=== PATIENT | female | born 1965 | race Caucasian/White ===

== ENCOUNTER 2020-11-02 04:21 | Inpatient (IN) | payer OTHER ==
[2020-11-02] MEDS ORDERED: MIDAZOLAM HCL 2 MG/2 ML SINGLE DOSE VIAL ONE ×2 (10:34)
[2020-11-02] MEDS ORDERED: fentaNYL CITRATE 250 MCG/5 ML VIAL ONE (11:16)
[2020-11-02] MEDS ORDERED: PROPOFOL 20 ML ONE (11:17)
[2020-11-02] MEDS ORDERED: GLYCOPYRROLATE 0.2 MG/1 ML VIAL ONE ×3 (11:27→15:22)
[2020-11-02] MEDS ORDERED: BUPIVACAINE HCL/PF 0.25% (2.5MG/ML) 10 ML VIAL ONE (11:28)
[2020-11-02] MEDS ORDERED: SUCCINYLCHOLINE CHLORIDE 200 MG/10 ML SYRINGE ONE (11:28)
[2020-11-02] MEDS ORDERED: ceFAZolin SODIUM 1 GM VIAL ONE (11:36)
[2020-11-02] MEDS ORDERED: ceFAZolin SODIUM 1 GM VIAL IVPB ONE (11:40)
[2020-11-02] MEDS ORDERED: DEXAMETHASONE SOD PHOSPHATE 4 MG/1 ML VIAL ONE (12:03)
[2020-11-02] MEDS ORDERED: NEOSTIGMINE METHYLSULFATE 0.5 MG/ML - 10 ML MDV ONE (14:23)
[2020-11-02] MEDS ORDERED: HYDROmorphone HCl 2 MG/ML VIAL IVPB PRN (14:28)
[2020-11-02] MEDS ORDERED: ONDANSETRON 4 MG/2 ML VIAL IVPUSH PRN (14:57)
[2020-11-02 15:50] LABS: HEMOGLOBIN 12.2 GM/dL (10.7-15.3); MCH 30.1 pg (25.7-33.7); MCHC 32.9 g/dl (32.0-36.0); MEAN CELL VOLUME 91.4 fl (80-96); MEAN PLT VOLUME 8.8 fl (7.5-11.1); PLATELET COUNT 206 10^3/uL (134-434); RBC 4.04 M/mm3 (3.60-5.2); RDW 13.8 % (11.6-15.6); WHITE BLOOD COUNT 5.9 K/mm3 (4.0-10.0)
[2020-11-02 16:12] LABS: CALCIUM 8.4 mg/dL (8.5-10.1)
[2020-11-02 16:13] LABS: ALBUMIN 3.4 g/dl (3.4-5.0); BLOOD UREA NITROGEN 11.5 mg/dL (7-18)
[2020-11-02 16:16] LABS: CREATININE 0.7 mg/dL (0.55-1.3)
[2020-11-02 16:18] LABS: BILIRUBIN,TOTAL 0.4 mg/dL (0.2-1); TOT PROT 6.4 g/dl (6.4-8.2)
[2020-11-02] MEDS: LACTATED RINGERS SOLUTION 1,000 ML IV SCH (18:23)
[2020-11-02] MEDS: SODIUM CHLORIDE 1,000 ML IV SCH (20:13)
[2020-11-02] MEDS: FAMOTIDINE 20 MG/50 ML IVPB 20 MG/50 ML MG IVPB SCH (21:17)
[2020-11-02] MEDS: HYDROmorphone HCl 2 MG/ML VIAL IVPB PRN (21:42)
[2020-11-03 08:47] LABS: HEMATOCRIT 34.4 % (32.4-45.2); HEMOGLOBIN 11.4 GM/dL (10.7-15.3); MCH 30.3 pg (25.7-33.7); MCHC 33.1 g/dl (32.0-36.0); MEAN CELL VOLUME 91.4 fl (80-96); PLATELET COUNT 203 10^3/uL (134-434); RBC 3.77 M/mm3 (3.60-5.2); RDW 13.8 % (11.6-15.6); WHITE BLOOD COUNT 5.9 K/mm3 (4.0-10.0)
[2020-11-03] MEDS: FAMOTIDINE 20 MG/50 ML IVPB 20 MG/50 ML MG IVPB SCH ×2 (09:09→21:23)
[2020-11-03 09:31] LABS: CALCIUM 8.3 mg/dL (8.5-10.1)
[2020-11-03 09:32] LABS: BLOOD UREA NITROGEN 9.2 mg/dL (7-18)
[2020-11-03 09:35] LABS: CREATININE 0.7 mg/dL (0.55-1.3)
[2020-11-03 09:36] LABS: BILIRUBIN,TOTAL 0.8 mg/dL (0.2-1)
[2020-11-03 09:37] LABS: TOT PROT 5.7 g/dl (6.4-8.2)
[2020-11-03] MEDS: HYDROmorphone HCl 2 MG/ML VIAL IVPB PRN (18:22)
[2020-11-03] MEDS: LACTATED RINGERS SOLUTION 1,000 ML IV SCH (18:29)
[2020-11-04] MEDS: LACTATED RINGERS SOLUTION 1,000 ML IV SCH ×2 (07:14→15:38)
[2020-11-04] MEDS: FAMOTIDINE 20 MG/50 ML IVPB 20 MG/50 ML MG IVPB SCH ×2 (09:33→21:39)
[2020-11-04] MEDS: SODIUM CHLORIDE 1,000 ML IV SCH (15:39)
[2020-11-04 17:26] LABS: HEMATOCRIT 33.2 % (32.4-45.2); HEMOGLOBIN 11.3 GM/dL (10.7-15.3); MCH 30.6 pg (25.7-33.7); MCHC 34.1 g/dl (32.0-36.0); MEAN CELL VOLUME 89.8 fl (80-96); MEAN PLT VOLUME 8.7 fl (7.5-11.1); PLATELET COUNT 190 10^3/uL (134-434); RDW 13.9 % (11.6-15.6); WHITE BLOOD COUNT 4.4 K/mm3 (4.0-10.0)
[2020-11-04 17:50] LABS: CALCIUM 8.6 mg/dL (8.5-10.1)
[2020-11-04 17:52] LABS: ALBUMIN 3.4 g/dl (3.4-5.0); BLOOD UREA NITROGEN 7.9 mg/dL (7-18)
[2020-11-04 17:55] LABS: CREATININE 0.6 mg/dL (0.55-1.3)
[2020-11-04 17:56] LABS: BILIRUBIN,TOTAL 0.4 mg/dL (0.2-1); TOT PROT 6.3 g/dl (6.4-8.2)
[2020-11-05] MEDS ORDERED: DEXMEDETOMIDINE HCL 200 MCG/2 ML IVPB ONE (07:08)
[2020-11-05] MEDS ORDERED: ACETAMINOPHEN INJECTION 200 ML IVPB ONE (07:09)
[2020-11-05] MEDS ORDERED: PROPOFOL 20 ML ONE ×3 (07:21)
[2020-11-05] MEDS ORDERED: SUCCINYLCHOLINE CHLORIDE 200 MG/10 ML SYRINGE ONE (07:22)
[2020-11-05] MEDS ORDERED: EPHEDRINE SULFATE/0.9% NACL/PF 50 MG/10 ML SYRINGE NR ONE ×2 (07:22→13:11)
[2020-11-05] MEDS ORDERED: NEOSTIGMINE METHYLSULFATE 0.5 MG/ML - 10 ML MDV ONE (07:23)
[2020-11-05] MEDS ORDERED: ROCURONIUM BROMIDE 50 MG/5 ML SYRINGE ONE ×2 (07:23→10:36)
[2020-11-05] MEDS ORDERED: fentaNYL CITRATE 250 MCG/5 ML VIAL ONE (07:25)
[2020-11-05] MEDS ORDERED: MIDAZOLAM HCL 2 MG/2 ML SINGLE DOSE VIAL ONE (07:25)
[2020-11-05] MEDS ORDERED: KETAMINE HCL 200 MG/20 ML VIAL ONE (07:25)
[2020-11-05] MEDS ORDERED: BUPIVACAINE HCL/PF 0.25% (2.5MG/ML) 10 ML VIAL ONE ×2 (07:30→14:06)
[2020-11-05] MEDS ORDERED: ceFAZolin SODIUM 1 GM VIAL IVPB ONE (08:30)
[2020-11-05] MEDS ORDERED: GLYCOPYRROLATE 0.2 MG/1 ML VIAL ONE (09:02)
[2020-11-05] MEDS ORDERED: LIDOCAINE HCL/PF 2% SDV 5ML VIAL ONE ×2 (09:07→09:35)
[2020-11-05] MEDS: FAMOTIDINE 20 MG/50 ML IVPB 20 MG/50 ML MG IVPB SCH ×2 (09:38→21:47)
[2020-11-05] MEDS ORDERED: ceFAZolin SODIUM 1 GM VIAL ONE (12:19)
[2020-11-05] MEDS ORDERED: ALBUMIN HUMAN 25% 12.5 GM/50 ML VIAL IVPB SCH (14:15)
[2020-11-05] MEDS ORDERED: HYDROmorphone *PCA* 10MG/50ML DISP.SYRIN PCA SCH (16:30)
[2020-11-05] MEDS: LACTATED RINGERS SOLUTION 1,000 ML IV SCH (16:30)
[2020-11-05] MEDS ORDERED: PCA PUMP NR ONE ×2 (16:44→18:35)
[2020-11-05] MEDS: SODIUM CHLORIDE 1,000 ML IV SCH (17:07)
[2020-11-05] MEDS ORDERED: ACETAMINOPHEN 1000 MG/100 ML VIAL (NON FORMULARY) IVPB PRN (17:45)
[2020-11-05] MEDS: LACTATED RINGERS SOLUTION 1,000 ML/1,000 ML INFUS.BAG IV SCH (19:04)
[2020-11-05 20:46] LABS: HEMATOCRIT 33.7 % (32.4-45.2); HEMOGLOBIN 11.4 GM/dL (10.7-15.3); MCH 30.7 pg (25.7-33.7); MCHC 33.9 g/dl (32.0-36.0); MEAN CELL VOLUME 90.6 fl (80-96); MEAN PLT VOLUME 8.5 fl (7.5-11.1); PLATELET COUNT 176 10^3/uL (134-434); RBC 3.72 M/mm3 (3.60-5.2); RDW 13.4 % (11.6-15.6); WHITE BLOOD COUNT 6.6 K/mm3 (4.0-10.0)
[2020-11-05 21:08] LABS: ALBUMIN 3.1 g/dl (3.4-5.0); BLOOD UREA NITROGEN 7.6 mg/dL (7-18); CALCIUM 8.3 mg/dL (8.5-10.1)
[2020-11-05 21:12] LABS: BILIRUBIN,TOTAL 0.4 mg/dL (0.2-1); CREATININE 0.7 mg/dL (0.55-1.3); TOT PROT 5.3 g/dl (6.4-8.2)
[2020-11-05] MEDS: ACETAMINOPHEN 1000 MG/100 ML VIAL (NON FORMULARY) IVPB PRN (21:52)
[2020-11-05] MEDS ORDERED: FAMOTIDINE 20 MG/50 ML IVPB 50 ML IVPB SCH (22:00)
[2020-11-05] MEDS ORDERED: LACTATED RINGERS SOLUTION 1000 ML INFUS.BAG IV ONE (23:07)
[2020-11-06] MEDS ORDERED: PCA PUMP NR ONE ×6 (03:58→20:43)
[2020-11-06] MEDS: SODIUM CHLORIDE 1,000 ML IV SCH ×2 (04:00→18:43)
[2020-11-06] MEDS: ACETAMINOPHEN 1000 MG/100 ML VIAL (NON FORMULARY) IVPB PRN ×3 (05:42→18:01)
[2020-11-06 07:10] LABS: HEMATOCRIT 35.9 % (32.4-45.2); HEMOGLOBIN 11.9 GM/dL (10.7-15.3); MCH 30.4 pg (25.7-33.7); MCHC 33.3 g/dl (32.0-36.0); MEAN CELL VOLUME 91.2 fl (80-96); MEAN PLT VOLUME 8.6 fl (7.5-11.1); PLATELET COUNT 207 10^3/uL (134-434); RBC 3.93 M/mm3 (3.60-5.2); RDW 13.6 % (11.6-15.6); WHITE BLOOD COUNT 7.3 K/mm3 (4.0-10.0)
[2020-11-06 07:25] LABS: ALBUMIN 3.1 g/dl (3.4-5.0); BLOOD UREA NITROGEN 8.5 mg/dL (7-18); CALCIUM 8.2 mg/dL (8.5-10.1)
[2020-11-06 07:28] LABS: CREATININE 0.7 mg/dL (0.55-1.3)
[2020-11-06 07:31] LABS: BILIRUBIN,TOTAL 0.4 mg/dL (0.2-1); TOT PROT 5.7 g/dl (6.4-8.2)
[2020-11-06] MEDS: FAMOTIDINE 20 MG/50 ML IVPB 20 MG/50 ML MG IVPB SCH ×2 (09:15→22:42)
[2020-11-06] MEDS: ONDANSETRON 4 MG/2 ML VIAL IVPUSH PRN ×2 (10:25→17:28)
[2020-11-06] MEDS: LACTATED RINGERS SOLUTION 1,000 ML/1,000 ML INFUS.BAG IV SCH (18:41)
[2020-11-06] MEDS: HYDROmorphone *PCA* 10MG/50ML DISP.SYRIN PCA SCH (21:51)
[2020-11-06] MEDS: CHLORHEXIDINE GLUCONATE 4% CLEANSER FOR DECOLONIZATION TP SCH (22:42)
[2020-11-07] MEDS ORDERED: PCA PUMP NR ONE ×2 (06:58→07:54)
[2020-11-07 07:12] LABS: HEMATOCRIT 32.9 % (32.4-45.2); HEMOGLOBIN 10.9 GM/dL (10.7-15.3); MCH 30.5 pg (25.7-33.7); MCHC 33.1 g/dl (32.0-36.0); MEAN CELL VOLUME 92.1 fl (80-96); MEAN PLT VOLUME 9.1 fl (7.5-11.1); PLATELET COUNT 203 10^3/uL (134-434); RBC 3.57 M/mm3 (3.60-5.2); RDW 13.4 % (11.6-15.6); WHITE BLOOD COUNT 5.9 K/mm3 (4.0-10.0)
[2020-11-07 07:22] LABS: ALBUMIN 2.8 g/dl (3.4-5.0); BLOOD UREA NITROGEN 7.7 mg/dL (7-18); CALCIUM 8.3 mg/dL (8.5-10.1)
[2020-11-07 07:25] LABS: CREATININE 0.4 mg/dL (0.55-1.3)
[2020-11-07 07:27] LABS: BILIRUBIN,TOTAL 0.5 mg/dL (0.2-1); TOT PROT 5.5 g/dl (6.4-8.2)
[2020-11-07] MEDS ORDERED: DEXTROSE 50%-WATER - 25 GM/50 ML VIAL IVPUSH ONE (08:12)
[2020-11-07] MEDS ORDERED: DEXTROSE 50%-WATER 25 GM/50 ML DISP.SYRIN ONE (08:15)
[2020-11-07] MEDS: HYDROmorphone *PCA* 10MG/50ML DISP.SYRIN PCA SCH (08:35)
[2020-11-07] MEDS: LACTATED RINGERS SOLUTION 1,000 ML/1,000 ML INFUS.BAG IV SCH (10:53)
[2020-11-07] MEDS: FAMOTIDINE 20 MG/50 ML IVPB 20 MG/50 ML MG IVPB SCH ×2 (10:53→21:52)
[2020-11-07] MEDS: DEXTROSE 5%-0.45% SALINE 1,000 ML IV SCH (12:19)
[2020-11-07] MEDS: ACETAMINOPHEN 1000 MG/100 ML VIAL (NON FORMULARY) IVPB SCH ×2 (12:25→19:33)
[2020-11-07 15:23] VITALS: BMI 26.8
[2020-11-07] MEDS: ENOXAPARIN NA (PORCINE) 30 MG/0.3 ML DISP.SYRIN SQ SCH ×2 (17:26→17:30)
[2020-11-07] MEDS: ZOLPIDEM TARTRATE 5 MG TABLET PO PRN (21:52)
[2020-11-07] MEDS: CHLORHEXIDINE GLUCONATE 4% CLEANSER FOR DECOLONIZATION TP SCH (22:00)
[2020-11-08] MEDS: ACETAMINOPHEN 1000 MG/100 ML VIAL (NON FORMULARY) IVPB SCH (03:09)
[2020-11-08 06:36] LABS: BASO % 0.2 % (0-2.0); EOS % 7.4 % (0-4.5); HEMATOCRIT 31.1 % (32.4-45.2); HEMOGLOBIN 10.4 GM/dL (10.7-15.3); MCH 30.4 pg (25.7-33.7); MCHC 33.5 g/dl (32.0-36.0); MEAN CELL VOLUME 90.7 fl (80-96); MEAN PLT VOLUME 8.6 fl (7.5-11.1); NEUT % 67.4 % (42.8-82.8); PLATELET COUNT 203 10^3/uL (134-434); RBC 3.43 M/mm3 (3.60-5.2); RDW 13.5 % (11.6-15.6); WHITE BLOOD COUNT 3.9 K/mm3 (4.0-10.0)
[2020-11-08 06:59] LABS: CALCIUM 7.8 mg/dL (8.5-10.1)
[2020-11-08 07:00] LABS: ALBUMIN 2.5 g/dl (3.4-5.0); BLOOD UREA NITROGEN 4.9 mg/dL (7-18); MAGNESIUM 1.6 mg/dL (1.8-2.4)
[2020-11-08 07:03] LABS: CREATININE 0.3 mg/dL (0.55-1.3); PHOSPHOROUS 1.8 mg/dL (2.5-4.9)
[2020-11-08 07:07] LABS: BILIRUBIN,TOTAL 0.3 mg/dL (0.2-1); TOT PROT 4.8 g/dl (6.4-8.2)
[2020-11-08] MEDS ORDERED: MAGNESIUM SULF 50% (8.12 MEQ/2 ML-1 GM VIAL) IVPB ONE (08:36)
[2020-11-08] MEDS ORDERED: POTASSIUM CHLORIDE ORAL LIQUID 20 MEQ/15 ML PO ONE (08:36)
[2020-11-08] MEDS: ENOXAPARIN NA (PORCINE) 30 MG/0.3 ML DISP.SYRIN SQ SCH (09:58)
[2020-11-08] MEDS: FAMOTIDINE 20 MG/50 ML IVPB 20 MG/50 ML MG IVPB SCH ×2 (10:01→21:57)
[2020-11-08] MEDS ORDERED: POTASSIUM PHOSPHATE 30 MM in SODIUM CHLORIDE 500 ML IVPB ONE (11:58)
[2020-11-08] MEDS ORDERED: PCA PUMP NR ONE ×4 (12:49→13:23)
[2020-11-08] MEDS: oxyCODONE HCL 5 MG TABLET PO PRN (13:19)
[2020-11-08] MEDS ORDERED: PT OWN MED DRAWER 7, Y5N ONE (13:25)
[2020-11-08] MEDS: HYDROmorphone HCl 2 MG/ML VIAL IVPB PRN ×2 (17:37→21:56)
[2020-11-08] MEDS: DEXTROSE 5%-0.45% SALINE 1,000 ML IV SCH (21:48)
[2020-11-08] MEDS: ZOLPIDEM TARTRATE 5 MG TABLET PO PRN (21:56)
[2020-11-09] MEDS: CHLORHEXIDINE GLUCONATE 4% CLEANSER FOR DECOLONIZATION TP SCH ×2 (03:02→21:50)
[2020-11-09 06:58] LABS: EOS % 7.7 % (0-4.5); HEMATOCRIT 31.1 % (32.4-45.2); HEMOGLOBIN 10.6 GM/dL (10.7-15.3); LYMPH % 22.8 % (8-40); MCH 30.6 pg (25.7-33.7); MCHC 34.1 g/dl (32.0-36.0); MEAN CELL VOLUME 89.7 fl (80-96); MEAN PLT VOLUME 8.6 fl (7.5-11.1); MONO % 7.7 % (3.8-10.2); NEUT % 60.8 % (42.8-82.8); PLATELET COUNT 226 10^3/uL (134-434); RBC 3.47 M/mm3 (3.60-5.2); RDW 13.3 % (11.6-15.6); WHITE BLOOD COUNT 3.9 K/mm3 (4.0-10.0)
[2020-11-09 07:15] LABS: ALBUMIN 2.4 g/dl (3.4-5.0); CALCIUM 7.8 mg/dL (8.5-10.1)
[2020-11-09 07:19] LABS: CREATININE 0.4 mg/dL (0.55-1.3); PHOSPHOROUS 2.6 mg/dL (2.5-4.9)
[2020-11-09 07:20] LABS: BILIRUBIN,TOTAL 0.4 mg/dL (0.2-1); TOT PROT 5.1 g/dl (6.4-8.2)
[2020-11-09] MEDS: oxyCODONE HCL 5 MG TABLET PO PRN ×3 (09:00→19:17)
[2020-11-09] MEDS: ENOXAPARIN NA (PORCINE) 30 MG/0.3 ML DISP.SYRIN SQ SCH (09:12)
[2020-11-09] MEDS: FAMOTIDINE 20 MG/50 ML IVPB 20 MG/50 ML MG IVPB SCH ×2 (09:13→21:49)
[2020-11-09] MEDS: DEXTROSE 5%-0.45% SALINE 1,000 ML IV SCH (14:11)
[2020-11-09] MEDS ORDERED: DEXTROSE 5%-0.45% SALINE 1,000 ML IV SCH (18:30)
[2020-11-09] MEDS: ZOLPIDEM TARTRATE 5 MG TABLET PO PRN (21:49)
[2020-11-10 00:24] VITALS: TEMP 97.9
[2020-11-10] MEDS: oxyCODONE HCL 5 MG TABLET PO PRN ×2 (06:22→10:27)
[2020-11-10] MEDS ORDERED: PT OWN MED DRAWER 7, Y5N ONE ×2 (08:44→09:45)
[2020-11-10] MEDS: ENOXAPARIN NA (PORCINE) 30 MG/0.3 ML DISP.SYRIN SQ SCH (09:27)
[2020-11-10] MEDS: FAMOTIDINE 20 MG/50 ML IVPB 20 MG/50 ML MG IVPB SCH (09:27)
[2020-11-10 11:08] VITALS: BP 117/70; PULSE 58
== END 2020-11-10 10:40 | disposition home or self-care (01) | DRG 328 ==
LOC: J2C 04:21 → J6S 17:19 → JICU 11-05 16:22
PROVIDERS: ADMIT Surgery; ATTEND Surgery
PROC: 0FN24ZZ Release Left Lobe Liver, Percutaneous Endoscopic Approach (ICD-10-PCS; 2020-11-02)
PROC: 0JN83ZZ Release Abdomen Subcutaneous Tissue and Fascia, Percutaneous Approach (ICD-10-PCS; 2020-11-02)
PROC: 0DJ08ZZ Inspection of Upper Intestinal Tract, Via Natural or Artificial Opening Endoscopic (ICD-10-PCS; 2020-11-02)
PROC: 0DN64ZZ Release Stomach, Percutaneous Endoscopic Approach (ICD-10-PCS; principal; 2020-11-02 11:00)
PROC: 0D764ZZ Dilation of Stomach, Percutaneous Endoscopic Approach (ICD-10-PCS; 2020-11-05)
PROC: 0DT80ZZ Resection of Small Intestine, Open Approach (ICD-10-PCS; 2020-11-05)
DX: K31.89 Other diseases of stomach and duodenum (principal); R10.13 Epigastric pain; K21.9 Gastro-esophageal reflux disease without esophagitis; K66.0 Peritoneal adhesions (postprocedural) (postinfection); K92.9 Disease of digestive system, unspecified; R11.10 Vomiting, unspecified; J45.909 Unspecified asthma, uncomplicated; Z98.84 Bariatric surgery status; R09.02 Hypoxemia
CPT/HCPCS: 36415; 71045-TC-FY; 74018-TC-FY; 74240-TC-FY; 80053; 82962; 83735; 84100; 84703; 85025; 85027; 86850; 86900; 86901; 88305-TC; 93005; 93010; 94760; 97116-GP; 97161-GP; J0131